=== PATIENT | female | born 1980 | race Caucasian/White ===

== ENCOUNTER 2016-08-21 09:19 | Observation (INO) | payer OTHER ==
--- NOTE | 2016-08-21 09:47 | CPEKG ---
Heart Rate: 71 RR Interval: 845 P-R Interval: 168 QRSD Interval: 82 QT Interval: 376 QTC Interval: 409 P [place]: 42 QRS [place]: -11 T Wave [place]: -11 EKG Severity - BORDERLINE ECG - EKG Impression: SINUS RHYTHM EKG Impression: BORDERLINE T ABNORMALITIES, INFERIOR LEADS EKG Impression: T-wave inversions in lead 3, unchanged from previous Electronically Signed By: Marty Nunez 21-Aug-2016 10:03:32
[2016-08-21] MEDS ORDERED: NS 1,000 ML IV ONE (09:50)
[2016-08-21] MEDS ORDERED: FAMOTIDINE 20 MG/2 ML SDV IVP ONE (09:53)
--- NOTE | 2016-08-21 09:57 | EDPHY ---
H & P Stated Complaint: l knee surg 08/11 now with l calf pain chest pain/l shoulder pain Time Seen by Provider: 08/21/16 09:45 HPI/ROS: HPI: 35-year-old female presents to emergency department with chief concern left calf pain, chest pain, left shoulder pain that onset within the past 24 hours. Reports transient episode of right sided pleuritic chest pain that was severe 6/10, resolved after 5 minutes. Was not associated with nausea, vomiting , shortness of breath. Developed left calf pain last night and left shoulder pain at onset of right-sided chest pain. Developed left-sided 3/10 non pleuritic chest pain this morning on her way into the emergency department. Developed 2/10 upper epigastric discomfort at time of exam. Had an ACL repair on August 11, 2016. Broke her fibula on June 05 and has been somewhat immobile since then. Denies fever, chills, URI symptoms, shortness of breath, nausea, vomiting, diarrhea, urinary symptoms. No personal or family history of blood clots. Maternal grandmother has history of cardiac disease. ROS:10 point review of systems is negative other than as stated in HPI Source: Patient - Personal History LMP (Females 10-55): 22-28 Days Ago Current Tetanus/Diphtheria Vaccine: Yes - Medical/Surgical History Hx Asthma: No Hx Chronic Respiratory Disease: No Hx Diabetes: No Hx Cardiac Disease: No Hx Renal Disease: No Hx Cirrhosis: No Hx Alcoholism: No Hx HIV/AIDS: No Hx Splenectomy or Spleen Trauma: No Other PMH: l acl repair, left fibula fracture, ectopic , IUD malfunction, currently with Nuva Ring - Family History Significant Family History: Heart disease (Maternal grandmother) - Social History Smoking Status: Never smoked Alcohol Use: Rarely Drug Use: None Additional Social History: - Physical Exam Exam: Vital signs stable, reviewed by me General: Awake, alert, calm, cooperative. No acute distress. Head: Normalocephalic. Atraumatic. EENT: PERRLA. EOMI. No pallor or injection. Anicteric. No nystagmus. No injection. TMs intact bilaterally with normal landmarks. No rhinnorhea, nasal passages clear. Oropharynx without redness, exudates, or lesions. Tonsils 2+ bilaterally, no exudates. Neck: Supple, nontender. No lymphadenopathy. Full range of motion. No meningismus. No carotid bruit. No JVD. Respiratory: Breathing unlabored. Breath sounds equal bilaterally and clear to auscultation. No adventitious sounds. CV: Chest nontender, atraumatic. Heart rate regular. No murmur, distal pulses 2+ bilaterally. Brisk cap refill all extremities. GI: Abdomen soft, nontender. Bowel sounds normoactive and positive x4 quadrants. : No CVA or flank tenderness. Neuro: Alert. Oriented x 3. Speech clear. Nonfocal cranial nerves throughout. Sensation intact all extremities. Skin: Skin warm, dry, intact. Left knee incisions well approximated and scabbed. Skin turgor normal. Extremities: Full range of motion in all 4 extremities. Strength 5+ all extremities. Positive calf tenderness, positive Homans left lower extremity. Constitutional: Initial Vital Signs Temperature (C) 36.5 C 08/21/16 09:25 Heart Rate 73 08/21/16 09:25 Respiratory Rate 16 08/21/16 09:25 Blood Pressure 114/64 08/21/16 09:25 O2 Sat (%) 95 08/21/16 09:25 O2 Delivery Mode Room Air Allergies/Adverse Reactions: amoxicillin [Amoxicillin] Allergy (Verified 08/21/16 09:23) Home Medications: Medication Instructions Recorded Escitalopram Oxalate 08/21/16 Levothyroxine 08/21/16 Metformin HCl 08/21/16 Nuva Ring 08/21/16 Medical Decision Making - Diagnostics Imaging: Chest CT With IV Contrast History: Calf pain, recent knee surgery on August 11, chest pain, positive d- dimer Technique: Ultrafast ultrathin [address] obtained through the chest after bolus administration of 90 mL of Isovue 370 nonionic contrast without complication. Soft tissue and bone window evaluation is performed. Multiplanar and 3D reconstructions are reviewed on an independent 3D workstation. Dose reduction techniques were utilized. Chest Findings: There is no evidence of pneumonia, pleural effusion, mass or pneumothorax. Heart size is normal and there is no pericardial effusion. CT Pulmonary Angiogram: Findings: There are bilateral lower lobe, segmental pulmonary emboli, right greater than left. Right-sided heart chambers are not dilated and the interventricular septum has normal morphology. Impression: Bilateral pulmonary emboli. No evidence for pulmonary infarction. Dictated By: Paul Costa MD ED Course/Re-evaluation: 1000: 35-year-old female presents to emergency department with chest pain, left shoulder pain, left calf pain. Had ACL repair left knee August 11 but has been largely immobile since June 05 when she broke her fibula. EKG shows sinus rhythm, rate 71, normal intervals, T-wave flattening in lead 2, lead 3 depressed/inverted T-wave that is widened. Labs and lower extremity ultrasound pending. Patient declines pain medication presently. 1050: D-dimer 1.72. Ultrasound left calf negative for DVT. CT angio chest ordered. Vitals remained stable. Continues to decline pain medication. 1240: CT reveals bilateral pulmonary emboli. Patient will be admitted to hospitalist service. Report given to Birdie Arana PA-C. Bed ordered. Weight based heparin protocol initiated vitals remained stable. Patient continues to decline pain medication. 1430: Bed finally available. Hospitalist in room with patient. Patient will be transferred to floor. She is stable. Declines pain medication. Differential Diagnosis: Differential diagnosis includes but is not limited to and in no particular order DVT, pulmonary embolism, acute coronary syndrome, reactive airway disease , anxiety, costochondritis, musculoskeletal strain - Data Points Laboratory Results: Laboratory Results 08/21/16 09:55 08/21/16 09:55 08/21/16 08/21/16 10:50 09:55 WBC 7.47 10^3/uL (3.80-9.50) RBC 4.34 10^6/uL (4.18-5.33) Hgb 13.2 g/dL (12.6-16.3) Hct 38.2 % (38.0-47.0) MCV 88.0 fL (81.5-99.8) MCH 30.4 pg (27.9-34.1) MCHC 34.6 g/dL (32.4-36.7) RDW 11.8 % (11.5-15.2) Plt Count 288 10^3/uL (150-400) MPV 9.7 fL (8.7-11.7) Neut % (Auto) 63.0 % (39.3-74.2) Lymph % (Auto) 25.7 % (15.0-45.0) [place] % (Auto) 7.4 % (4.5-13.0) Eos % (Auto) 2.5 % (0.6-7.6) Baso % (Auto) 0.9 % (0.3-1.7) Nucleat RBC Rel Count 0.0 % (0.0-0.2) Absolute Neuts (auto) 4.70 10^3/uL (1.70-6.50) Absolute Lymphs (auto) 1.92 10^3/uL (1.00-3.00) Absolute Monos (auto) 0.55 10^3/uL (0.30-0.80) Absolute Eos (auto) 0.19 10^3/uL (0.03-0.40) Absolute Basos (auto) 0.07 10^3/uL (0.02-0.10) Absolute Nucleated RBC 0.00 10^3/uL (0-0.01) Immature Gran % 0.5 % (0.0-1.1) Immature Gran # 0.04 10^3/uL (0.00-0.10) PT 12.2 SEC (12.0-15.0) INR 0.91 (0.83-1.16) APTT 24.0 SEC (23.0-38.0) D-Dimer 1.72 H ug/mLFEU (0.00-0.50) Sodium 142 mEq/L (134-144) Potassium 4.4 mEq/L (3.5-5.2) Chloride 110 mEq/L (97-110) Carbon Dioxide 20 L mEq/l (22-31) Anion Gap 12 mEq/L (8-16) BUN 15 mg/dL (7-23) Creatinine 0.6 mg/dL (0.6-1.0) Estimated GFR > 60 Glucose 86 mg/dL (70-100) Calcium 9.5 mg/dL (8.5-10.4) Troponin I < 0.012 ng/mL (0-0.034) Beta HCG, Qual NEGATIVE Medications Given: Discontinued Medications Famotidine (Pepcid) 20 mg IVP EDNOW ONE Stop: 08/21/16 09:54 Last Admin: 08/21/16 10:08 Dose: 20 mg Heparin Sodium (Porcine) (Heparin Injection) 0 unit IVP ONCE ONE PRN Reason: Protocol Stop: 08/21/16 12:40 Last Admin: 08/21/16 13:14 Dose: 5,100 units Sodium Chloride (Ns) 1,000 mls @ 0 mls/hr IV ONCE ONE PRN Reason: Wide Open Stop: 08/21/16 09:51 Last Admin: 08/21/16 10:08 Dose: 1,000 mls Departure - Departure Disposition: [facility] Inpatient Acute Clinical Impression: Chest pain, Pulmonary embolism Condition: Good Instructions: Chest Pain (ED) Referrals: NONE *PRIMARY CARE P,. [Primary Care Provider] - As per Instructions
[2016-08-21 10:07] LABS: % IMMATURE GRANULYOCYTES 0.5 % (0.0-1.1); ABSOLUTE IMMATURE GRANULOCYTES 0.04 10^3/uL (0.00-0.10); ADD DIFF? NO; ADD MORPH? NO; ADD SCAN? NO; ATYPICAL LYMPHOCYTE FLAG 0 (0-99); FRAGMENT RBC FLAG 0 (0-99); HEMATOCRIT 38.2 % (38.0-47.0); HEMOGLOBIN 13.2 g/dL (12.6-16.3); LEFT SHIFT FLG 0 (0-99); LIPEMIA HEMOLYSIS FLAG 90 (0-99); MEAN CELL HEMOGLOBIN 30.4 pg (27.9-34.1); MEAN CELL HEMOGLOBIN CONCENTR. 34.6 g/dL (32.4-36.7); MEAN PLATELET VOLUME 9.7 fL (8.7-11.7); PLATELET CLUMPS FLAG 0 (0-99); PLATELET COUNT 288 10^3/uL (150-400); RED BLOOD CELL COUNT 4.34 10^6/uL (4.18-5.33); RED CELL DISTRIBUTION WIDTH 11.8 % (11.5-15.2)
[2016-08-21 10:28] LABS: ANION GAP 12 mEq/L (8-16); CALCIUM 9.5 mg/dL (8.5-10.4); CARBON DIOXIDE 20 mEq/l (22-31); CHLORIDE 110 mEq/L (97-110); CREATININE 0.6 mg/dL (0.6-1.0); GLOMERULAR FILTRATION RATE > 60; GLUCOSE 86 mg/dL (70-100); POTASSIUM 4.4 mEq/L (3.5-5.2); SODIUM 142 mEq/L (134-144)
[2016-08-21 10:38] LABS: TROPONIN I < 0.012 ng/mL (0-0.034)
--- NOTE | 2016-08-21 10:51 | US ---
Ultrasound and Venous Duplex Doppler Study of Left Lower Extremity History: Knee surgery on August 11, 2016. Left calf pain since yesterday Technique: High frequency transducer was used for imaging and Doppler study of the veins of the lowe r extremity. Pulsed Doppler and color Doppler were utilized, along with various maneuvers to assess flow in the veins. Findings: The deep veins of the lower extremity are normally compressible between the groin and the upper calf and have normal Doppler waveforms within them. No deep venous thrombosis is identified. No superficial phlebitis or Perry cyst is identified. Impression: No evidence of deep vein thrombosis in the left lower extremity. Results communicated to Sissy Maddox at 1050 a.m.
[2016-08-21 11:13] LABS: INR 0.91 (0.83-1.16); PROTIME(PATIENT) 12.2 SEC (12.0-15.0)
[2016-08-21] MEDS ORDERED: IOPAMIDOL (ISOVUE 370) 100 ML BTL IV ONE (11:39)
--- NOTE | 2016-08-21 12:14 | CT ---
Chest CT With IV Contrast History: Calf pain, recent knee surgery on August 11, chest pain, positive d-dimer Technique: Ultrafast ultrathin [address] obtained through the chest after bolus administra tion of 90 mL of Isovue 370 nonionic contrast without complication. Soft tissue and bone window evalu ation is performed. Multiplanar and 3D reconstructions are reviewed on an independent 3D workstation. Dose reduction techniques were utilized. Chest Findings: There is no evidence of pneumonia, pleural effusion, mass or pneumothorax. Heart size is normal and there is no pericardial effusion. CT Pulmonary Angiogram: Findings: There are bilateral lower lobe, segmental pulmonary emboli, right g reater than left. Right-sided heart chambers are not dilated and the interventricular septum has norm al morphology. Impression: Bilateral pulmonary emboli. No evidence for pulmonary infarction. Results communicated to Sissy Maddox. General information for patients regarding this examination can be found at [email or web address]. If you have questions or comments about this report, please contact me at [phone] (hospital) or [phone] (cell).
[2016-08-21] MEDS ORDERED: HEPARIN 10,000 UNIT/10 ML MDV IVP PRN (12:39)
[2016-08-21] MEDS ORDERED: HEPARIN 10,000 UNIT/10 ML MDV IVP ONE (12:39)
[2016-08-21] MEDS: HEPARIN/DEXTROSE 500 ML IV SCH (13:17)
[2016-08-21] MEDS ORDERED: ONDANSETRON 4 MG/2 ML VIAL IVP PRN (13:25)
[2016-08-21] MEDS ORDERED: ONDANSETRON DISINTEGRATING 4 MG TAB PO PRN (13:25)
--- NOTE | 2016-08-21 15:25 | GHP ---
[f rep st] HISTORY AND PHYSICAL DATE OF ADMISSION: 08/21/2016 DATE OF EVALUATION: 08/21/2016 CHIEF COMPLAINT: Acute pulmonary embolism. HISTORY OF PRESENT ILLNESS: Patient is a 35-year-old female with past medical history of PCOS presenting with chest, left shoulder, and left calf pain that started abruptly last night. Patient fell down the stairs June 05, suffered an ACL tear, and underwent repair on August 11. Since that time, she has been fairly immobile. She has had some pain in the left knee; but the pain in the calf was new. The chest pain started on the right, sharp in nature , and migrated to the left side this morning. Left shoulder pain felt achy like receiving a flu shot. She denies new shortness of breath. She states since surgery she has had some dyspnea with exertion. She also has some dizziness and light-headedness since her surgery as well. She denies fevers, chills, or sweats. No vomiting or diarrhea. She does have nausea with opioids. She has been treating her left knee pain with Tylenol and Advil. REVIEW OF SYSTEMS: I completed a 10-point review of systems, negative except as noted in HPI. PAST MEDICAL HISTORY: PCOS. PAST SURGICAL HISTORY: 1. ACL repair August 11, 2016. 2. 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 3. No surgery as a child. FAMILY HISTORY: No CAD. No clots. SOCIAL HISTORY: Lives in [place]. Has 2 kids. Is a senior tax accountant. Social drinker. No alcohol or illicits. MEDICATIONS: NuvaRing, Advil, Tylenol, citalopram, metformin, levothyroxine. ALLERGIES: Amoxicillin with a rash. PHYSICAL EXAMINATION: VITAL SIGNS: Temperature 36.8, blood pressure 127/90, heart rate 70s to 80s, respirations 17, 94% on room air. GENERAL: Overweight female, in no acute distress. HEENT: PERRLA, EOMI. Oropharynx clear. CV: Regular rate and rhythm. No murmurs, gallops, or rubs. LUNGS: Clear to auscultation bilaterally. ABDOMEN: Soft, nontender, nondistended. Positive bowel sounds. : No suprapubic tenderness. No Daniel. MUSCULOSKELETAL: Left knee swelling with surgical incisions. Sutures clean dry and intact. No evidence of infection or cellulitis. Decreased range of motion of that knee. Tenderness behind the knee with palpation. NEUROLOGIC: 2 through 12 intact. No focal deficits. PSYCHIATRIC: Alert and oriented x3 next. LABS: WBC 7.4, hemoglobin 13, hematocrit 38, platelets 288. D-dimer 1.72. INR 0.9. PT 12.2. Sodium 142, potassium 4.4, chloride 110, carbon dioxide 28, anion gap 12, BUN 15, creatinine 0.6, glucose 86. Troponin less than 0.012. Negative . Ultrasound of lower extremities negative for DVT. CTA: Bilateral pulmonary emboli. No evidence of infarction. EKG: Personally reviewed by me, normal sinus rhythm. T-wave inversion in lead III. ASSESSMENT/PLAN: 1. Acute pulmonary emboli: Suspect provoked with immobility with recent surgery. There is no evidence of infarct. There is no evidence of right heart strain on electrocardiogram. Troponin is negative. I will repeat this. Also, check an echocardiogram. Patient is stable on room air with normal blood pressure. She was started on heparin drip. I discussed oral options with her extensively. She is going to call her pharmacy to determine if a newer agent would be covered. No evidence of deep venous thrombosis. Stop Nuvaring. 2. Knee pain secondary to recent surgery: She prefers Tylenol and Advil. No DVT. 3. Acute chest pain secondary to pulmonary emboli: We will provide IV Toradol here. 4. Polycystic ovarian syndrome: Continue metformin. 5. Hypothyroidism: Continue levothyroxine. 6. Deep venous thrombosis prophylaxis: On heparin drip. 7. Disposition: I will admit patient for observation overnight on telemetry monitoring while awaiting transesophageal echocardiogram. /[id number]/MODL MTDD
[2016-08-21] MEDS ORDERED: NS 1,000 ML IV SCH (17:15)
[2016-08-21] MEDS: FAMOTIDINE 20 MG TAB PO SCH (20:38)
[2016-08-21] MEDS: KETOROLAC 30 MG/1 ML SDV IVP PRN (20:39)
[2016-08-21] MEDS ORDERED: metFORMIN SR 750 MG TAB.SR PO SCH (21:00)
[2016-08-21] MEDS ORDERED: ESCITALOPRAM OXALATE 10 MG TAB PO SCH (21:00)
[2016-08-21 21:14] LABS: INR 1.04 (0.83-1.16); PROTIME(PATIENT) 13.5 SEC (12.0-15.0)
[2016-08-21 21:15] LABS: APTT 46.5 SEC (23.0-38.0)
[2016-08-22 03:20] LABS: HEMOGLOBIN 11.5 g/dL (12.6-16.3); MEAN CELL HEMOGLOBIN 29.6 pg (27.9-34.1); MEAN CELL HEMOGLOBIN CONCENTR. 32.9 g/dL (32.4-36.7); RED BLOOD CELL COUNT 3.89 10^6/uL (4.18-5.33); RED CELL DISTRIBUTION WIDTH 11.9 % (11.5-15.2)
[2016-08-22] MEDS: ACETAMINOPHEN 325 MG TAB PO PRN ×2 (04:06→12:49)
[2016-08-22] MEDS ORDERED: LEVOTHYROXINE 50 MCG TAB PO SCH (06:00)
[2016-08-22] MEDS: HEPARIN/DEXTROSE 500 ML IV SCH (07:02)
[2016-08-22 07:37] VITALS: RESP 16
[2016-08-22] MEDS: FAMOTIDINE 20 MG TAB PO SCH (08:27)
--- NOTE | 2016-08-22 11:16 | HOSPPROG ---
[id number] strain -opted for coumadin. DC with Lovenox bridge. FU Anticoagulation clinic #PCOS: home meds #Hypothyroidism: LT4 Disp: DC today Time spent on DC 60 min in which >50% counseling pt on anticoagulation and coordinating FU Subjective: no SOB today Objective: Vital Signs Temp Pulse Resp BP Pulse Ox 36.7 C 72 16 132/82 H 94 08/22/16 07:37 08/22/16 07:37 08/22/16 07:37 08/22/16 07:37 08/22/16 07:37 Laboratory Results 08/22/16 03:00 08/21/16 08/22/16 08/23/16 05:59 05:59 05:59 Intake Total 3159 Output Total 200 Balance 2959 PT 13.5 SEC (12.0-15.0) 08/21/16 20:45 INR 1.04 (0.83-1.16) 08/21/16 20:45 - Time Spent With Patient Time Spent with Patient: greater than 35 minutes Time Spent with Patient: Greater than 35 minutes spent on this patients care, greater than 50% of time spent counseling, educating, and coordinating care regarding the above mentioned plan. - Physical Exam Constitutional: no apparent distress Eyes: PERRL Ears, Nose, Mouth, Throat: moist mucous membranes Cardiovascular: regular rate and rhythym Respiratory: no respiratory distress Gastrointestinal: normoactive bowel sounds Genitourinary: no bladder fullness Skin: warm Musculoskeletal: other (left leg swollen. Knee surgical incisions C/D/I) Neurologic: AAOx3 Psychiatric: interacting appropriately ICD10 Worksheet Patient Problems: Problems Problem Status Diagnosed Chest pain Acute Pulmonary embolism Acute SROM (spontaneous rupture of membranes) Acute
[2016-08-22] MEDS ORDERED: ENOXAPARIN 80 MG/0.8 ML SYR SC SCH ×2 (13:00)
--- NOTE | 2016-08-22 14:26 | ECHO ---
[id number] + + [address] : : [place] [address] : : [phone] + + Adult Echocardiographic Report + -+ :Name: JADA PROCTOR LStudy Date: 08/22/2016 10:28 AM : : Hospital Admission Number: [id number] : :: 1980 Gender: Female Height: 66 in : :Age: 35 yrs Race: WH Weight: 188 lb : :Reason For Study: PE/Eval for RV strian : : BSA: 1.9 meters 2: + -+ MMode/2D Measurements & Calculations IVSd: 0.97 cm LVIDd: 4.7 cm FS: 27.7 % Ao root diam: LVPWd: 0.72 cm LVIDs: 3.4 cm EDV(Teich): 2.9 cm 103.0 ml LA dimension: ESV(Teich): 3.1 cm 47.7 ml EF(Teich): 53.7 % LVLd ap4: 7.5 cm SV(MOD-sp4): EDV(MOD-sp4): 41.0 ml 66.0 ml LVLs ap4: 6.2 cm ESV(MOD-sp4): 25.0 ml EF(MOD-sp4): 62.1 % Normal Measurement Values: + + :LVIDd (3.5-5.7cm) IVSd (0.6-1.1cm) LVPWd (0.6-1.1cm) Aortic Root (2.0-3.7cm)Left Atrium (1.5-4.0cm): :LV Vol(d) (76-115ml) LV Vol(s) (29-48ml) Ejec Fraction (50-65%)PV Elder (0.6- 1.2m/s) TV Elder (0.4-1.0m/s) : :MV E Elder (0.8-1.0m/s)MV A Elder (0.3-1.0m/s)LVOT Elder (0.7-1.2m/s) Asc Ao Elder ( 0.9-1.8m/s) : + + Doppler Measurements & Calculations MV E max elder: 96.3 cm/sec Ao V2 max: 135.7 cm/sec MV A max elder: 59.2 cm/sec Ao max P.4 mmHg MV E/A: 1.6 Left Ventricle The left ventricle is normal in size and function. There is normal left ventricular wall thickness. Left ventricular systolic function is normal. Ejection Fraction = 60-65%. No regional wall motion abnormalities noted. Right Ventricle The right ventricle is normal in size and function. Atria The left atrial size is normal. Right atrial size is normal. The interatrial septum is intact with no evidence for an atrial septal defect. Mitral Valve The mitral valve is normal in structure and function. There is no evidence of mitral valve prolapse. There is no mitral valve stenosis. Tricuspid Valve Normal tricuspid valve. There is trace tricuspid regurgitation. Aortic Valve The aortic valve is trileaflet. The aortic valve opens well. There is no aortic stenosis. There is no aortic insufficiency. Pulmonic Valve The pulmonic valve is normal in structure and function. There is no pulmonic valvular regurgitation. Great Vessels The aortic root is normal size. Pericardium/Pleural There is no pericardial effusion. Conclusion A complete two-dimensional transthoracic echocardiogram was performed (2D, M-mode, Doppler and color flow Doppler). This was essentially a normal study. The left ventricle is normal in size and function. Left ventricular systolic function is normal. Ejection Fraction = 60-65%. There is trace tricuspid regurgitation. The right ventricle is normal in size and function. Final Reading Physician: Jocelyn Valencia signed on 08/22/2016 02:25 PM Ordering Physician: Geovanna Sherwood Performed By: Kathryn Bartlett RDCS
[2016-08-22] MEDS ORDERED: WARFARIN SODIUM 5 MG TAB PO ONE (16:16)
[2016-08-22] MEDS: KETOROLAC 30 MG/1 ML SDV IVP PRN (16:24)
[2016-08-22 17:04] VITALS: BP 130/84; PULSE 71; TEMP 97.7; O2SAT 96
--- NOTE | 2016-08-22 17:18 | GDS ---
[f rep st] DISCHARGE SUMMARY DISCHARGE DIAGNOSES: 1. Provoked bilateral pulmonary emboli. 2. Atypical chest pain. 3. Recent left anterior cruciate ligament repair. 4. Left pain. 5. Polycystic ovary syndrome. 6. Hypothyroidism. HISTORY: Patient is a pleasant 35-year-old female with past medical history of PCOS, presenting with chest, left shoulder, and left calf pain, started abruptly at night prior to admission. She fell down stairs June 05, suffered an ACL tear, and underwent surgery on August 11. Since that time, she has been fairly immobile. She has had some pain in the left knee, but the pain in her calf is new. It is achy in nature. The chest pain was sharp on the right and then migrated to the left side on day of admission. She denies any shortness of breath. Has had some dizziness and lightheadedness, but this has been since her surgery. Denies fevers. Chills, sweats. ASSESSMENT AND PLAN: 1. Provoked bilateral pulmonary emboli: secondary to immobility with recent knee surgery and on NuvaRing for contraception. Initial concern for a DVT given left leg pain, but ultrasound was negative. No evidence of right heart strain on EKG or echocardiogram. Patient has remained hemodynamically stable on room air. I discussed different treatment options and she chose to start Coumadin. She was started on that today with a Lovenox bridge. She has a followup INR appointment with the Anticoagulation Clinic. Recommend 3-6 months treatment. She should see her PCP for possible hypercoagulable evaluation, though I think this is likely provoked. She was advised to stop the NuvaRing. 2. Atypical chest pain: [place] NSAIDs. 3. Knee pain: Continue Tylenol or Advil. She has had nausea and vomiting with opioids. 4. Polycystic ovary syndrome: Continue metformin. 5. Hypothyroidism: Continue levothyroxine. DISPOSITION: Patient is stable for discharge. MEDICATIONS: New medications: Coumadin and Lovenox. INSTRUCTIONS: 1. Followup INR. 2. Follow up with her PCP. /[id number]/MODL MTDD
== END 2016-08-22 19:43 | disposition home or self-care (01) ==
LOC: UNDOADMOB 12:46 → F3N 15:36
PROVIDERS: ADMIT Internal Medicine; ATTEND Internal Medicine
DX: I26.99 Other pulmonary embolism without acute cor pulmonale (principal); R07.89 Other chest pain; E28.2 Polycystic ovarian syndrome; E03.9 Hypothyroidism, unspecified; Z98.890 Other specified postprocedural states; M25.562 Pain in left knee
CPT/HCPCS: 71275; 93005; 93306; 93971; 97161; 97165; G0378; 85520-90; 96374; J1644; J1650; J1885; Q9967

== ENCOUNTER 2016-12-10 17:18 | Emergency (ER) | payer OTHER ==
--- NOTE | 2016-12-10 18:20 | EDPHY ---
H & P Stated Complaint: lightheaded acute onset 1722, cp since 09/03 dx PE Time Seen by Provider: 12/10/16 18:19 - Personal History LMP (Females 10-55): 8-14 Days Ago Current Tetanus/Diphtheria Vaccine: Unsure Current Tetanus Diphtheria and Acellular Pertussis (TDAP): Unsure - Medical/Surgical History Hx Asthma: No Hx Chronic Respiratory Disease: No Hx Diabetes: No Hx Cardiac Disease: No Hx Renal Disease: No Hx Cirrhosis: No Hx Alcoholism: No Hx HIV/AIDS: No Hx Splenectomy or Spleen Trauma: No Other PMH: l acl repair, left fibula fracture, ectopic , PE 09/03 - Social History Smoking Status: Never smoked Constitutional: Initial Vital Signs Temperature (C) 36.5 C 12/10/16 17:21 Heart Rate 77 12/10/16 17:21 Respiratory Rate 18 12/10/16 17:21 Blood Pressure 114/80 12/10/16 17:21 O2 Sat (%) 98 12/10/16 17:21 O2 Delivery Mode Room Air Allergies/Adverse Reactions: amoxicillin [Amoxicillin] Allergy (Verified 08/21/16 09:23) Home Medications: Medication Instructions Recorded Acetaminophen [Tylenol ES 500 mg 1,000 mg PO Q6 PRN 08/21/16 (*)] Escitalopram Oxalate [Lexapro] 5 mg PO HS 08/21/16 Ibuprofen [Motrin (*)] 400 mg PO Q6 PRN 08/21/16 Levothyroxine [Synthroid 50 mcg 50 mcg PO DAILY06 08/21/16 (*)] metFORMIN SR [Glucophage XR 750 mg 1,500 mg PO HS 08/21/16 (*)] Enoxaparin [Lovenox 80 MG (*)] 80 mg SQ BID #20 syr 08/22/16 Warfarin Sodium 5 mg PO DAILY #30 tablet 08/22/16 Medical Decision Making ED Course/Re-evaluation: CHIEF COMPLAINT: Chills, chest pain HISTORY OF PRESENT ILLNESS: The patient is an anticoagulated 36 y/o female, with a history of provoked PEs, arriving with her family member complaining of progressively worsening chills, lightheadedness, and intermittent chest pain. This morning she felt shaky and cold and throughout the day developed lightheadedness and near-syncopal sensation that prompted her to come to the ED. En route here, she began having intermittent substernal chest pain and shallow breathing. She notes her chest pain from her prior PEs have never completely resolved, but her current symptoms feel similar to her previous PE. No recent leg pain or swelling nor long periods of travel. She has had a mild sore throat and rhinorrhea in the last few days that she attributed to allergies and improved with Benadryl. REVIEW OF SYSTEMS: A 10 point review of systems was performed and is negative with the exception of the elements mentioned in the history of present illness. PHYSICAL EXAM: HR, BP, O2 Sat, RR. Temp noted General Appearance: Alert, well hydrated, appropriate, and non-toxic appearing. Head: Atraumatic without scalp tenderness or obvious injury Eyes: Pupils equal, round, reactive to light and accommodation, EOMI, no trauma , no injection. Nose: Atraumatic, no rhinorrhea, clear. Throat: There is no erythema or exudates, no lesions, normal tonsils, mucus membranes moist. Neck: Supple, nontender, no lymphadenopathy. Respiratory: No retractions, no distress, no wheezes, and no accessory muscle use. Scattered rhonchi bilaterally. Cardiovascular: Regular rate and rhythm, no murmurs, rubs, or gallops. Good capillary refill all extremities. Gastrointestinal: Abdomen is soft, nontender, non-distended, no masses, no rebound, no guarding, no peritoneal signs. Musculoskeletal: Normal active ROM of all extremities, atraumatic. Neurological: Alert, appropriate, and interactive. Nonfocal neuro exam. Skin: No rashes, good turgor, no nodules on palpation. Past medical history: Bilateral PEs following surgery 08/21/16 - still on Coumadin Past surgical history: ACL repair Family history: noncontributory Social history: family member at bedside Prior medical records reviewed including admission 08/21/16 for bilateral PEs provoked after surgery. DIAGNOSTICS/PROCEDURES/CRITICAL CARE TIME: The 12 lead EKG was interpreted by myself. EKG shows sinus rhythm rate 77, T wave inversion in precordial leads new from EKG 08/21/16, right heart strain pattern. See hard copy and/or "tracemaster" electronic copy for interpretation. DIFFERENTIAL DIAGNOSIS: The differential diagnosis for the patient's chest pain included but was not limited to myocardial ischemia, pulmonary embolus, chest wall pain, pleural inflammation, and pulmonary infectious causes. MEDICAL DECISION MAKING: This is a 36 y/o female with a history of provoked PEs who presents with chills , lightheadedness, and intermittent chest pain onset today. Exam is unremarkable. IV established. Labs drawn. Patient placed on personnel monitor. Her symptoms are more consistent with infectious process, but due to PE history and some reported chest pain, we will d-dimer and troponin in addition to other labs. EKG is abnormal and different from previous EKG on 08/21/16 during her admission for bilateral PEs. She denies chest pain that is new from her baseline since PEs. Not hypoxemic. Labs pending. 2020: Reassessed patient and discussed work up. Her labs are unremarkable. D- dimer and troponin negative. She has remained hemodynamically stable while here and denies current chest pain. I have not found obvious cause for her symptoms, but in absence of chest pain and respiratory distress with normal labs, we mutually decided to not continue with further ED work up. She feels comfortable with discharge home. I discussed following up with a disassembler to further investigate EKG changes. Return precautions given. She is comfortable with discharge plan. - Data Points Laboratory Results: Laboratory Results 12/10/16 18:32 12/10/16 18:32 12/10/16 12/10/16 12/10/16 19:40 18:32 18:32 WBC RBC Hgb Hct MCV MCH MCHC RDW Plt Count MPV Neut % (Auto) Lymph % (Auto) [place] % (Auto) Eos % (Auto) Baso % (Auto) Nucleat RBC Rel Count Absolute Neuts (auto) Absolute Lymphs (auto) Absolute Monos (auto) Absolute Eos (auto) Absolute Basos (auto) Absolute Nucleated RBC Immature Gran % Immature Gran # PT 25.1 SEC H SEC (12.0-15.0) INR 2.25 H (0.83-1.16) APTT 31.1 SEC SEC (23.0-38.0) D-Dimer < 0.27 ug/mLFEU ug/mLFEU (0.00-0.50) Sodium 137 mEq/L mEq/L (134-144) Potassium 4.0 mEq/L mEq/L (3.5-5.2) Chloride 101 mEq/L mEq/L (97-110) Carbon Dioxide 24 mEq/l mEq/l (22-31) Anion Gap 12 mEq/L mEq/L (8-16) BUN 15 mg/dL mg/dL (7-23) Creatinine 0.7 mg/dL mg/dL (0.6-1.0) Estimated GFR > 60 Glucose 134 mg/dL H mg/dL (70-100) Calcium 9.5 mg/dL mg/dL (8.5-10.4) Troponin I < 0.012 ng/mL ng/mL (0-0.034) NT-Pro-B Natriuret Pep 43 pg/mL pg/mL (0-125) Urine Color YELLOW Urine Appearance CLEAR Urine pH 6.0 (5.0-7.5) Ur Specific [place] 1.016 (1.002-1.030) Urine Protein NEGATIVE (NEGATIVE) Urine Ketones NEGATIVE (NEGATIVE) Urine Blood NEGATIVE (NEGATIVE) Urine Nitrate NEGATIVE (NEGATIVE) Urine Bilirubin NEGATIVE (NEGATIVE) Urine Urobilinogen NEGATIVE EU EU (0.2-1.0) Ur Leukocyte Esterase NEGATIVE (NEGATIVE) Urine Glucose NEGATIVE (NEGATIVE) 12/10/16 18:32 WBC 12.96 10^3/uL H 10^3/uL (3.80-9.50) RBC 5.19 10^6/uL 10^6/uL (4.18-5.33) Hgb 15.2 g/dL g/dL (12.6-16.3) Hct 45.1 % % (38.0-47.0) MCV 86.9 fL fL (81.5-99.8) MCH 29.3 pg pg (27.9-34.1) MCHC 33.7 g/dL g/dL (32.4-36.7) RDW 12.2 % % (11.5-15.2) Plt Count 347 10^3/uL 10^3/uL (150-400) MPV 9.9 fL fL (8.7-11.7) Neut % (Auto) 79.7 % H % (39.3-74.2) Lymph % (Auto) 12.1 % L % (15.0-45.0) [place] % (Auto) 5.4 % % (4.5-13.0) Eos % (Auto) 0.9 % % (0.6-7.6) Baso % (Auto) 0.7 % % (0.3-1.7) Nucleat RBC Rel Count 0.0 % % (0.0-0.2) Absolute Neuts (auto) 10.33 10^3/uL H 10^3/uL (1.70-6.50) Absolute Lymphs (auto) 1.57 10^3/uL 10^3/uL (1.00-3.00) Absolute Monos (auto) 0.70 10^3/uL 10^3/uL (0.30-0.80) Absolute Eos (auto) 0.12 10^3/uL 10^3/uL (0.03-0.40) Absolute Basos (auto) 0.09 10^3/uL 10^3/uL (0.02-0.10) Absolute Nucleated RBC 0.00 10^3/uL 10^3/uL (0-0.01) Immature Gran % 1.2 % H % (0.0-1.1) Immature Gran # 0.15 10^3/uL H 10^3/uL (0.00-0.10) PT INR APTT D-Dimer Sodium Potassium Chloride Carbon Dioxide Anion Gap BUN Creatinine Estimated GFR Glucose Calcium Troponin I NT-Pro-B Natriuret Pep Urine Color Urine Appearance Urine pH Ur Specific [place] Urine Protein Urine Ketones Urine Blood Urine Nitrate Urine Bilirubin Urine Urobilinogen Ur Leukocyte Esterase Urine Glucose Medications Given: Discontinued Medications Albuterol/Ipratropium (Duoneb) 3 ml IH EDNOW ONE Stop: 12/10/16 18:29 Last Admin: 12/10/16 18:36 Dose: 3 ml Departure - Departure Disposition: Home, Routine, Self-Care Clinical Impression: Chills (without fever) Condition: Good Instructions: Fever in Adults (ED) Additional Instructions: 1. Use Tylenol and ibuprofen as needed for fever and chills over the next few days. 2. Follow up with your disassembler for EKG changes. You've been referred to Dr. King. 3. Return to the ED for any worsening of condition. Adult Pain & Fever Control: We recommend Acetaminophen (Tylenol) and Ibuprofen (Motrin,Advil) for pain and fever control. When fever is high or pain severe, both drugs can be used at the same time, but at different intervals. Please note the time differences. Your dose is: Acetaminophen 650mg every 4 to 6 hours Ibuprofen 600mg every 6-8 hours with food Note: do not take Acetaminophen with Hydrocodone (Vicodin, Lortab) or Oxycodone (Percocet). These medications also contain Acetaminophen. No more than 3000mg of Acetaminophen should be taken in 24 hours (for an adult). Referrals: Paul Roldan DO [Primary Care Provider] - As per Instructions Danny King MD [Medical Doctor] - As per Instructions Report Scribed for: Darío Marino Report Scribed by: Alicia Bacon Date of Report: 12/10/16 Time of Report: 20:13
[2016-12-10] MEDS ORDERED: IPRATROPIUM/ALBUTEROL 3 ML DEYVIAL ONE (18:26)
[2016-12-10] MEDS ORDERED: IPRATROPIUM/ALBUTEROL 3 ML DEYVIAL IH ONE (18:28)
[2016-12-10 18:42] LABS: % IMMATURE GRANULYOCYTES 1.2 % (0.0-1.1); ABSOLUTE IMMATURE GRANULOCYTES 0.15 10^3/uL (0.00-0.10); ADD DIFF? NO; ADD MORPH? NO; ADD SCAN? NO; ATYPICAL LYMPHOCYTE FLAG 0 (0-99); FRAGMENT RBC FLAG 0 (0-99); HEMATOCRIT 45.1 % (38.0-47.0); HEMOGLOBIN 15.2 g/dL (12.6-16.3); LEFT SHIFT FLG 0 (0-99); LIPEMIA HEMOLYSIS FLAG 80 (0-99); MEAN CELL HEMOGLOBIN 29.3 pg (27.9-34.1); MEAN CELL HEMOGLOBIN CONCENTR. 33.7 g/dL (32.4-36.7); MEAN CELL VOLUME 86.9 fL (81.5-99.8); MEAN PLATELET VOLUME 9.9 fL (8.7-11.7); PLATELET CLUMPS FLAG 0 (0-99); PLATELET COUNT 347 10^3/uL (150-400); RED BLOOD CELL COUNT 5.19 10^6/uL (4.18-5.33); RED CELL DISTRIBUTION WIDTH 12.2 % (11.5-15.2)
--- NOTE | 2016-12-10 18:48 | CPEKG ---
Heart Rate: 77 RR Interval: 779 P-R Interval: 164 QRSD Interval: 94 QT Interval: 400 QTC Interval: 453 P Atkins: 40 QRS Atkins: -7 T Wave Atkins: -27 EKG Severity - ABNORMAL ECG - EKG Impression: SINUS RHYTHM EKG Impression: ABNORMAL T, CONSIDER ISCHEMIA, DIFFUSE LEADS Electronically Signed By: Darío Marino 10-Dec-2016 20:38:36
[2016-12-10 18:54] LABS: APTT 31.1 SEC (23.0-38.0); INR 2.25 (0.83-1.16); PROTIME(PATIENT) 25.1 SEC (12.0-15.0)
[2016-12-10 18:55] LABS: ANION GAP 12 mEq/L (8-16); CALCIUM 9.5 mg/dL (8.5-10.4); CARBON DIOXIDE 24 mEq/l (22-31); CHLORIDE 101 mEq/L (97-110); CREATININE 0.7 mg/dL (0.6-1.0); GLOMERULAR FILTRATION RATE > 60; GLUCOSE 134 mg/dL (70-100); SODIUM 137 mEq/L (134-144)
[2016-12-10 19:24] LABS: TROPONIN I < 0.012 ng/mL (0-0.034)
[2016-12-10 20:02] LABS: COLOR YELLOW; LEUKOCYTE ESTERASE,URINE NEGATIVE (NEGATIVE); NITRITE,URINE NEGATIVE (NEGATIVE)
[2016-12-10 20:20] VITALS: BP 129/89; PULSE 84; RESP 16; TEMP 99.3; O2SAT 96
== END 2016-12-10 20:24 | disposition home or self-care (01) ==
DX: R68.83 Chills (without fever) (principal); Z79.01 Long term (current) use of anticoagulants

== ENCOUNTER → 2017-02-26 | Outpatient (CLI) | payer OTHER ==
[~2017-02-26] MED LIST: GADOBUTROL 10 ML VIAL IVP ONE
== END ==
LOC: FIMAGING 08:26
PROVIDERS: ATTEND Family Medicine
DX: H53.9 Unspecified visual disturbance (principal); R11.0 Nausea; R42 Dizziness and giddiness
CPT/HCPCS: A9585

== ENCOUNTER → 2017-03-16 | Outpatient (CLI) | payer OTHER | LOC: FIMAGING 15:08 | PROVIDERS: ATTEND Family Medicine | DX: M54.2 Cervicalgia (principal); M54.5 Low back pain ==